=== PATIENT | male | born 1965 | race Caucasian/White ===

== ENCOUNTER 2017-06-05 10:44 | Day surgery (SDC) | payer OTHER ==
[2017-06-04 10:23] VITALS: BMI 36.6
[2017-06-05] MEDS ORDERED: Midazolam HCl 2 mg/2 ml Vial ONE ×2 (11:57→13:50)
[2017-06-05 12:28] LABS: Calc. Creatinine Clearance 183 mL/min (70-130); Estimated GFR-MDRD Greater than 90
--- NOTE | 2017-06-05 13:38 | RAD ---
LUMBAR SPINE SERIES THREE VIEWS: History: Back pain, radiculopathy. FINDINGS: The vertebral bodies are normal in height. There is disc narrowing at all vertebral body levels. This is most pronounced at L4-5. Prominent anterior osteophyte changes are seen at L2-3 and L3-4. No spon dylolisthesis is demonstrated. There are degenerative facet changes. IMPRESSION: Marked arthritic changes of the spine. POS: EUN[facility]
[2017-06-05] MEDS ORDERED: Fentanyl 100 MCG/2 ML VIAL ONE (13:50)
[2017-06-05] MEDS ORDERED: Gadobenate Dimeglumine 529 MG/1 ML (20ML VIAL) ONE (16:14)
--- NOTE | 2017-06-05 16:23 | MRI ---
MRI LUMBAR SPINE WITH AND WITHOUT IV CONTRAST: 06/05/17 HISTORY: Lower back pain with radiation of pain down left leg and occasionally on the right. Symptoms have bee n present for two to three months. History of prior low back surgery. Provided history also indicates lumbar radiculopathy and left foot drop. COMPARISON: None available. FINDINGS: Retroperitoneal structures have a normal MRI appearance. The conus medullaris is normal in appearance and terminates at the L1-2 level. Multilevel Schmorl's nodes are seen as well as multilevel end plat e degenerative changes and loss of intervertebral disc height at all levels of the lumbar spine. T11-12 and T12-L1 levels: Minimal disc osteophyte complexes are present without significant narrowing of the central spinal canal or neural foramina at these levels. L1-2 level: There is a mild broad based disc osteophyte complex resulting in slight effacement of the ventral aspect of the thecal sac. The neural foramina are patent. L2-3 level: There is a mild broad based disc osteophyte with mild facet degenerative changes. There i s mild narrowing of the central spinal canal. Neural foramina are patent. L3-4 level: There is a mild broad based disc osteophyte complex with facet degenerative changes. Ther e is mild effacement of the ventral aspect of the thecal sac. There is only minimal encroachment on e ach neural foramen. L4-5 level: There is a broad based disc osteophyte complex with a left paracentral disc extrusion wit h disc material extending inferiorly on the left to lie posterior to the end plate of The L5 vertebra l body. The left L5 nerve root is not visualized due to the disc extrusion. Correlation for left L5 r adiculopathy is suggested. There is ligamentous thickening on the left. There is moderate to severe n arrowing of the central spinal canal, some of which is also secondary to congenitally short pedicles. There is moderate bilateral neural foraminal narrowing, greater on the left. L5-S1 level: There is a left laminotomy defect at this level. Mild enhancement seen in the region of the laminotomy defect related to scarring which approaches the thecal sac but does not appear to exte nd lateral to the thecal sac at this level. There are moderate facet hypertrophic changes at the L5-S 1 level and there is moderate bilateral left and moderate to severe right sided neural foraminal narr owing with question mild deformity of the right L5 nerve root within the neural foramen. IMPRESSION: 1. Multilevel degenerative changes in the lumbar spine with findings greatest in the lower lumba r spine. There is a broad based disc osteophyte complex at the L4-5 level with a left paracentral dis c extrusion, and this disc extrusion likely affects the traversing left L5 nerve root. There is moder ate bilateral neural foraminal narrowing at L4-5 with moderate left and severe right sided neural for aminal narrowing at the L5-S1 level. 2. 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 3. Left laminotomy defect at L5-S1 level. POS: EUN[facility]
== END 2017-06-05 15:28 | disposition home or self-care (01) ==
LOC: SDC/OP 10:44
PROVIDERS: ATTEND Surgery
DX: M54.16 Radiculopathy, lumbar region (principal); Z79.1 Long term (current) use of non-steroidal anti-inflammatories (NSAID); Z79.899 Other long term (current) drug therapy; Z98.890 Other specified postprocedural states
CPT/HCPCS: 72100; 72158; 82565; A9579; J2250; J3010